=== PATIENT | female | born 1985 | race Caucasian/White ===

== ENCOUNTER 2022-10-23 08:23 | Outpatient (CLI) | payer BC, SELFPAY ==
[2022-10-23 09:37] LABS: Hematocrit 31.4 % (37.0-47.0); Mean Corpuscular HGB Conc 31.8 g/dl (32-36); Mean Corpuscular Hemoglobin 30.2 pg (26-34); Mean Corpuscular Volume 94.9 fl (80-100); Mean Platelet Volume 9.9 fl (7.4-10.4); Platelet Count Result 198 k/mm3 (150-375); Red Blood Count 3.31 M/mm3 (4.2-5.4); Red Cell Distribution Width 15.7 % (11.5-14.5); White Blood Count 5.8 K/mm3 (4.5-10.0)
[2022-10-24 10:54] LABS: Rapid Plasma Reagin Non-Reactive (NonReactive)
== END 2022-10-23 08:24 | disposition home or self-care (01) ==
PROVIDERS: PCP Family Medicine; Visit Provider Obstetrics & Gynecology
DX: Z01.812 Encounter for preprocedural laboratory examination (principal)
CPT/HCPCS: 36415; 85027; 86592; 86850; 86900; 86901

== ENCOUNTER 2022-10-24 05:45 | Inpatient (IN) | payer BC, SELFPAY ==
[2022-10-24] VITALS (40 sets, daily range): BP systolic 89–163; BP diastolic 48–124; PULSE 50–100; RESP 15–20; TEMP 36–36.7; O2SAT 97–100; BMI 31.4
[2022-10-24] MEDS: LACTATED RINGERS 1,000 ML 125 ML IV CONT (06:27)
--- NOTE | 2022-10-24 06:30 | LDADM ---
This patient, Jacinta Ma, was admitted to Labor/Delivery/Recovery 120 on 10/24/22 at 05:45. Plans for labor, pain management and were discussed with patient. Patient/family oriented to hospital policies and general routines including ID bracelet, bed and alarms, visiting hours, pain management, procedures, bathroom and other care routines, personal items, smoking policy, room service/diet and guest tray routines, infant security routines, and visiting hours. Patient/Family are encouraged to report perceived risks to care and to ask questions if they do not understand what they are told or what they should do. See OBIX for further documentation.
[2022-10-24 06:53] LABS: Glucose Point of Care 90 mg/dl (65-105)
--- NOTE | 2022-10-24 06:54 | WPDANESEPPF ---
Anes - Initial Pre Proc Eval Procedure: Operation Date: 10/24/22 07:30 Proposed Procedures p Primary Section with Bilateral Tubal Ligation - Shahla Benson MD Date/Time: 10/24/22 06:54 Surgeon: Shahla Benson MD Pre Op Diagnosis: C/S Patient Data Age: 37 Gender: F Height: 1.68 m Weight: 88.2 kg Last Vital Signs Pulse 92 10/24/22 06:46 BP 100/57 L 10/24/22 06:46 O2 Del Method Room Air 10/24/22 06:29 Allergies Allergy/AdvReac Type Severity Reaction Status Date / Time No Known Allergies Allergy Unverified 10/04/18 14:34 Home Medications Medication Instructions Recorded Confirmed Type ferrous sulfate 325 mg (65 mg 325 mg PO DAILY 10/03/22 10/03/22 History iron) tablet insulin NPH human semi-syn 100 28 unit subcut 10/03/22 History unit/mL subcutaneous suspension prenat.vits,evelio,[id number]-jjjjr 1 tablet 10/03/22 History Laboratory Tests 10/24/22 06:46 POC Capillary Glucose 90 mg/dl (65-105) Patient hx anesthesia problems: none Family hx anesthesia problems: none Results Review: All pre-operative results and documents have been reviewed as part of the pre-operative evaluation. [facility] Family History Family History Mother Diabetes mellitus Social History Social History Smoking status: Never smoker Second hand tobacco smoke exposure: No Substance use: never Lack of Transportation: No Lack of Food: Never True Current Housing: I Have Housing Concerned About Future Housing: No Difficulty Paying Gas/Electric Bills: No Difficulty Paying for Meds: No Currently Unemployed: No Education: Trade/Vocational Certificate Difficulty w/ Childcare or Family Care: No Spiritual care concerns: No Anes - Eval Final PreProcedure Day of Procedure 10/24/22 06:54 Patient weight: obese Heart: regular rate and rhythm Lungs: clear to auscultation Airway: Mallampati scale class II Neurological: alert and oriented Last oral intake: >/= 8 hours ASA classification: III Emergent: no Anesthetic plan: proceed Anesthesia type and monitoring: regional spinal and standard monitoring Results Review: All pre-operative results and documents have been reviewed as part of the pre-operative evaluation. Informed Consent: The patient's anesthetic plan and its attendant risks and benefits were discussed with the patient/family/POA. Questions were solicited and answers provided to the satisfaction of the patient/family/POA.
--- NOTE | 2022-10-24 07:21 | PM.IMHP ---
H&P: HPI History of Present Illness Date/Time: 10/24/22 07:21 Chief Complaint: primary CS Narrative: Jacinta is a 37yo at 39.4 here for primary Cs for h/o shoulder dystocia with a clavicle fracture. She has had two vaginal deliveries of LGA babies. Also planning salpingectomy for sterilization. This complicated by A2GDM and AMA. Review of Systems Review of Systems: All systems reviewed & are unremarkable except as noted in HPI and below PMFSH Family History Family History Mother Diabetes mellitus Social History Social History Smoking status: Never smoker Second hand tobacco smoke exposure: No Substance use: never Lack of Transportation: No Lack of Food: Never True Current Housing: I Have Housing Concerned About Future Housing: No Difficulty Paying Gas/Electric Bills: No Difficulty Paying for Meds: No Currently Unemployed: No Education: Trade/Vocational Certificate Difficulty w/ Childcare or Family Care: No Spiritual care concerns: No Meds Home Medications and Allergies Home Medications Medication Instructions Recorded Confirmed Type ferrous sulfate 325 mg (65 mg 325 mg PO DAILY 10/03/22 10/03/22 History iron) tablet insulin NPH human semi-syn 100 28 unit subcut 10/03/22 History unit/mL subcutaneous suspension prenat.vits,evelio,wmc-lcmw-hcppn 1 tablet 10/03/22 History Allergies Allergy/AdvReac Type Severity Reaction Status Date / Time No Known Allergies Allergy Unverified 10/04/18 14:34 Vital Signs Vital Signs - 24 hr 10/24/22 06:16 10/24/22 06:31 10/24/22 06:46 Pulse Rate 92 77 92 Blood Pressure 104/60 105/57 L 100/57 L Oxygen Delivery 10/24/22 07:01 10/24/22 07:17 10/24/22 06:29 Pulse Rate 83 74 Blood Pressure 98/53 L 93/65 L Oxygen Delivery Room Air Exam Const: General: no acute distress Resp: Effort & Inspection: normal respiratory effort Auscultation: clear to auscultation bilaterally Cardio: Rate: regular rate Rhythm: regular rhythm GI: GI Palp: Yes Soft to palpation Extrem: General: normal to inspection Assessment and Plan Assessment and plan (1) History of shoulder dystocia in prior : Code(s): Z87.59 - Personal history of other complications of , childbirth and the puerperium Status: Acute (2) GDM, class A2: Code(s): O24.419 - Gestational diabetes mellitus in , unspecified control Status: Acute Plan Consented for primary CS and salpingectomy for sterilization. Will proceed.
--- NOTE | 2022-10-24 07:25 | WPDHPUPDATE1 ---
History and Physical Update Update Date/Time: 10/24/22 07:25 History and Physical has been reviewed, including an updated exam of the patient. There are NO changes in the patient's condition. Risks, benefits, and alternatives have been discussed and questions answered. Patient agrees to proceed with procedure.
[2022-10-24] MEDS: ceFAZolin 2 GM/D5W 50 ML 2 GM/50 ML BAG IVPB (07:33)
[2022-10-24] MEDS: KETOROLAC 30 MG/ML VIAL (*BKC) 15 MG IV PUSH (08:10)
--- NOTE | 2022-10-24 08:47 | P.PCNOB_ITS ---
OB - Delivery Note Procedure Delivery date: 10/24/22 Procedure: Procedures Operation Date: 10/24/22 07:30 <No data on this case meets the specified criteria> primary low transverse section and bilateral salpingectomy Events: Gestational Diabetes and Other (history of shoulder dystocia) Route of delivery: Specimen: Yes (placenta) Quantitative Blood Loss (ml): 850 Anesthesia type: Spinal Disposition: Floor Complications: none Narrative: Pre Op Dx: history of shoulder dystocia, GDMA2 Post Op Dx: same The patient was taken to the OR and received spinal anesthesia. She was placed in dorsal supine position with left lateral tilt. SCDs and joseph were placed. She was prepped and draped in the normal sterile fashion. A Pfannensteil skin incision was made and carried through to the underlying layer of fascia. The fascia was incised in the midline and then extended laterally using Lezama scissors. The muscles were in the midline and the peritoneum was entered bluntly. The peritoneal incision was extended inferiorly and superiorly with care to avoid the bladder. The bladder blade was then inserted, the vesicouterine peritoneum was grasped, incised with Metzenbaum scissors, and a bladder flap created. The bladder blade was reinserted. A low transverse uterine incision was made with a scalpel and extended bluntly. AROM was performed and fluid was noted to be clear. The head was delivered, followed by the remainder of the baby. The baby's oropharynx was suctioned. After 30 seconds, the cord was clamped and cut and the infant was handed off. Cord blood was obtained and the placenta was then removed manually. The uterus was exteriorized. A moist lap sponge was used to curette the endometrium. The uterine incision was then closed with two layers of 0-Vicryl in a running, locking fashion. Good hemostasis was noted after some hemaderm. The posterior cul de sac was irrigated with normal saline and cleared of all clot and debris. Attention was then turned to the salpingectomy. Using the Ligasure device, the tubes were sequentially clamped, cauterized, and cut until the entire length of the tube was removed. Both tubes were removed in the same fashion and sent to pathology and hemostasis was noted. The uterus was returned to the abdomen. Both lateral gutters were then irrigated. The rectus muscles were inspected and hemostasis was obtained using Bovie cautery and hemaderm. The fascia was reapproximated using 0-Vicryl in running fashion. The subcutaneous tissue was irrigated with normal saline and made hemostatic with Bovie electrocautery. The skin was then closed with subcutaneous keisha. Steri strips and a bandage were applied. The uterus was evacuated. The patient tolerated the procedure very well. All counts were correct. She was taken to the recovery room in good condition. [place] Baby Date of : 10/24/22 Time of : 07:51 Weeks of gestation at delivery: 39 Infant gender: Female Weight (pounds): 8 Weight (ounces): 1 presentation: vertex Placenta delivery description: Manual Removal Cord Vessel Description: 3 Vessels and Delayed Cord Clamping score one minute: 8 score five minutes: 9
[2022-10-24] MEDS: LORATADINE 10 MG TABLET PO (09:29)
--- NOTE | 2022-10-24 11:08 | PC.NURSE ---
Patient transferred to post room #286 via stretcher. Support person present. Oriented to unit, room, information board, rooming in, admission packet and security measures. Patient verbalizes understanding.
--- NOTE | 2022-10-24 11:29 | PC.NURSE ---
On 10/24/22, the student, Filemon Pate, provided care and completed [facility] documentation on this patient. I have reviewed the student's documentation and agree with the findings.
[2022-10-24] MEDS: ONDANSETRON INJ 4 MG/2 ML VIAL IV PUSH (11:39)
[2022-10-24] MEDS: KCL 20 MEQ/D5/0.45% SOD CHL 1,000 ML 125 ML IV CONT (14:23)
[2022-10-24] MEDS: SIMETHICONE 80 MG TAB.CHEW PO (23:20)
[2022-10-25 00:10] VITALS: BP 99/64; PULSE 75; RESP 16; TEMP 36.7; O2SAT 100
[2022-10-25 04:00] VITALS: BP 98/56; PULSE 79; RESP 16; TEMP 36.8; O2SAT 100
[2022-10-25] MEDS: KETOROLAC 30 MG/ML VIAL (*BKC) IV PUSH (04:20)
[2022-10-25] MEDS: SIMETHICONE 80 MG TAB.CHEW PO ×2 (04:21→14:45)
[2022-10-25 04:57] LABS: Basophils Percent Auto 0.2 % (0.2-1.2); Eosinophils Absolute Auto 0.1 K/mm3 (0-0.3); Eosinophils Percent Auto 0.5 % (0-4.4); Hematocrit 26.9 % (37.0-47.0); Hemoglobin 8.7 g/dL (12.0-15.0); Immature Granulocyte Absolute 0.04 K/mm3 (0.00-0.031); Immature Granulocyte Percent A 0.4 % (0-0.5); Lymphocytes Absolute Auto 0.93 K/mm3 (0.9-3.2); Lymphocytes Percent Auto 9.1 % (18.3-44.2); Mean Corpuscular HGB Conc 32.3 g/dl (32-36); Mean Corpuscular Hemoglobin 30.1 pg (26-34); Mean Corpuscular Volume 93.1 fl (80-100); Mean Platelet Volume 10.1 fl (7.4-10.4); Monocytes Absolute Auto 0.7 K/mm3 (0.1-0.6); Monocytes Percent Auto 6.7 % (2.6-8.5); Neutrophils Absolute Auto 8.5 K/mm3 (1.3-6.7); Neutrophils Percent Auto 83.1 % (45.5-73.1); Platelet Count Result 155 k/mm3 (150-375); Red Blood Count 2.89 M/mm3 (4.2-5.4); Red Cell Distribution Width 15.6 % (11.5-14.5); White Blood Count 10.2 K/mm3 (4.5-10.0)
[2022-10-25 08:05] VITALS: BP 95/55; PULSE 74; RESP 18; TEMP 37.2; O2SAT 98
--- NOTE | 2022-10-25 08:09 | PM.OBPNVD ---
OB - PN: Subj Subjective Date/time seen: 10/25/22 08:09 Patient comments: no complaints, pain well controlled, tolerating diet and flatus present OB - PN: Obj Data Labs 10/25/22 04:07 Labs: Laboratory Results - last 24 hr 10/25/22 04:07 WBC 10.2 H RBC 2.89 L Hgb 8.7 L Hct 26.9 L MCV 93.1 MCH 30.1 MCHC 32.3 RDW 15.6 H Plt Count 155 MPV 10.1 Immature Gran % (Auto) 0.4 Neut % (Auto) 83.1 H Lymph % (Auto) 9.1 L [place] % (Auto) 6.7 Eos % (Auto) 0.5 Baso % (Auto) 0.2 Lymph # (Auto) 0.93 [place] # (Auto) 0.7 H Eos # (Auto) 0.1 Baso # (Auto) 0.0 Abs Immat Gran (auto) 0.04 H Absolute Neuts (auto) 8.5 H Absolute Nucleated RBC 0.0 Nucleated RBC % 0.0 OB - PN A/P Plan day: 1 Comments: Post Op LTCS - no problems, routine recovery Time Spent With Patient Time: Total time spent is greater than 50% in coordination of care (as documented) at patient's floor/unit and/or counseling patient: Exam Const: General: cooperative, healthy appearing, comfortable and no acute distress Resp: Auscultation: no crackles, no rales, no rhonchi and no wheezes Cardio: Rhythm: regular rhythm Heart sounds: no click and no murmurs GI: Inspection: non-distended Auscultation: normal bowel sounds Extrem: General: normal to inspection, no pedal edema and no calf tenderness
[2022-10-25] MEDS: POLYSACCHARIDE IRON COMPLEX 150 MG CAPSULE PO ×2 (08:36→16:21)
[2022-10-25] MEDS: MULTIVIT/MIN/PREN/FOL AC/IRON TABLET 1 TAB PO (08:36)
[2022-10-25] MEDS: IBUPROFEN 600 MG TABLET PO ×2 (08:37→14:52)
[2022-10-25] MEDS: DOCUSATE SODIUM 100 MG CAPSULE PO ×2 (08:37→16:21)
[2022-10-25] MEDS: HYDROcodone/acetaminophen (*CRX) 5-325 MG TABLET 1 TAB PO (08:38)
--- NOTE | 2022-10-25 12:00 | WPDANLDPN2 ---
Anes-Prog Note L&D Date/Time: 10/25/22 12:00 Neuro status: Neuro function grossly intact. Cardiovascular status: normal Respiratory status: normal Airway patency: baseline Mental status: baseline Post-Op hydration status: normal Vital Signs: Last Vital Signs Temp 37.2 C 10/25/22 08:05 Pulse 74 10/25/22 08:05 Resp 18 10/25/22 08:05 BP 95/55 L 10/25/22 08:05 Pulse Ox 98 10/25/22 08:05 O2 Del Method Room Air 10/24/22 20:30 Pain score (VAS): 310 I/O: Intake & Output 10/24/22 10/25/22 10/25/22 23:59 07:59 15:59 Intake Total 580 300 360 Output Total 700 1400 Balance -120 -1100 360 Post-procedural complaints: none Patient feedback: Patient satisfied with anesthetic care.
--- NOTE | 2022-10-25 12:00 | WPDANLDNPN2 ---
Anes-Prog Note L&D-Neuraxial Date/Time: 10/25/22 12:00 Opiod-related complaints: pruritis Patient feedback: Patient satisfied with post-operative pain management.
[2022-10-25] MEDS: HYDROcodone/acetaminophen (*CRX) 10-325 MG TABLET 1 TAB PO (14:56)
[2022-10-25 19:45] VITALS: BP 108/67; PULSE 91; RESP 18; TEMP 36.8; O2SAT 97
[2022-10-26] MEDS: IBUPROFEN 600 MG TABLET PO ×3 (00:07→23:20)
[2022-10-26] MEDS: HYDROcodone/acetaminophen (*CRX) 10-325 MG TABLET 1 TAB PO (00:07)
[2022-10-26] MEDS: SIMETHICONE 80 MG TAB.CHEW PO ×2 (00:08→09:57)
--- NOTE | 2022-10-26 07:31 | PM.OBPNVD ---
OB - PN: Subj Subjective Date/time seen: 10/26/22 07:31 Patient comments: no complaints and pain well controlled baby status: doing well OB - PN: Obj Data Labs 10/25/22 04:07 OB - PN A/P Assessment and Plan (1) delivery delivered: Code(s): O82 - Encounter for delivery without indication Status: Acute Plan day: 2 Plan: routine care Comments: home tomorrow Time Spent With Patient Time: Total time spent is greater than 50% in coordination of care (as documented) at patient's floor/unit and/or counseling patient: Exam Narrative: NAD abdomen soft, appropriately tender, incision CDI Extremities nontender with 1+ edema
[2022-10-26 08:40] VITALS: BP 107/59; PULSE 71; RESP 18; TEMP 36.9; O2SAT 98
[2022-10-26] MEDS: MULTIVIT/MIN/PREN/FOL AC/IRON TABLET 1 TAB PO (09:55)
[2022-10-26] MEDS: DOCUSATE SODIUM 100 MG CAPSULE PO ×2 (09:55→16:23)
[2022-10-26] MEDS: POLYSACCHARIDE IRON COMPLEX 150 MG CAPSULE PO ×2 (09:55→16:23)
[2022-10-26] MEDS: HYDROcodone/acetaminophen (*CRX) 5-325 MG TABLET 1 TAB PO ×2 (09:56→23:20)
[2022-10-26 20:00] VITALS: BP 108/55; PULSE 74; RESP 18; TEMP 36.9
[2022-10-27] MEDS: IBUPROFEN 600 MG TABLET PO (05:20)
[2022-10-27] MEDS: HYDROcodone/acetaminophen (*CRX) 5-325 MG TABLET 1 TAB PO ×2 (05:20→10:07)
--- NOTE | 2022-10-27 08:13 | PM.OBPNVD ---
OB - PN: Subj Subjective Date/time seen: 10/27/22 08:13 Patient comments: no complaints, pain well controlled, incisional pain, tolerating diet and flatus present OB - PN: Obj Data Labs 10/25/22 04:07 OB - PN A/P Plan day: 3 Plan: routine care, discharge home and other Comments: Incision check in one week. Given precautions Time Spent With Patient Time: Total time spent is greater than 50% in coordination of care (as documented) at patient's floor/unit and/or counseling patient: Exam Const: General: comfortable, no acute distress and alert Resp: Effort & Inspection: normal respiratory effort Auscultation: no crackles, no rales and no rhonchi Cardio: Rate: regular rate Heart sounds: no click, no murmurs and no rubs GI: Inspection: non-distended GI Palp: No Tenderness to palpation present (GI) Auscultation: normal bowel sounds Other: Incision - CDI Extrem: General: normal to inspection, no pedal edema and no calf tenderness
--- NOTE | 2022-10-27 08:13 | PM.OBDSVD ---
DS: Admitting Diagnosis Discharge Date 10/27/22 Admitting Diagnosis term DS: Discharge Diagnosis Discharge Diagnosis (1) delivery delivered: Code(s): O82 - Encounter for delivery without indication Status: Acute OB - DS: Summary OB Procedures : None OB Procedures Intrapartum: OB Procedures: : None Peripartum Data Procedures: Procedures Operation Date: 10/24/22 07:30 Actual Procedure Side Surgeon p Primary Section with Bilateral Tubal Ligation Bilateral Shahla Benson MD Time Spent with Patient Time attestation: Total time spent providing and/or coordinating discharge services: DS: Data Data Completed and Pending Completed studies during hospitalization: Pending at discharge 10/24/22 09:09 Surgical [PTH] Routine Discharge Plan Discharge Attending physician on discharge: Estefany Sanderson Discharging Clinician: Estefany Sanderson Patient Disposition: Home, Self-Care Activity: pelvic rest Diet: regular Discharge Instructions: Education: Mom and Baby Guide Given to: Mother Follow-Up: Call your delivering provider's office for an appointment to be seen in: 1 Week Mom and baby should come to the [facility] for the follow-up appointment. Appointment Date/Time: October 29, 2022 at 8:00 am What to expect at your follow-up visit: Blood Pressure Check Call [phone] if you are unable to keep your appointment time. BREAST CARE: * Wear a snug supportive bra. * For engorgement discomfort: Bottle Feeding: * May apply ice packs ABDOMINAL INCISION: (if applicable) * Allow incision to air dry * Do NOT use lotions for powders on your incision * When showering, allow soap and water to run over the incision, but do not wash incision PERINEAL CARE: * Until bleeding stops, use your jose bottle after urinating * Change your pad frequently throughout the day * No tub baths until seen by your physician - You may shower ACTIVITY: * Rest as much as possible. * Do not exercise or lift anything heavier than your baby (such as laundry or other children.) * Avoid stairs or driving as much as possible. * Do not put anything into the vagina. No douching, tampons, or sexual activity until seen by physician. NOTIFY PHYSICIAN IF YOU HAVE ANY QUESTIONS OR IF ANY OF THE FOLLOWING SYMPTOMS OCCUR: * If your incision becomes red, swollen, or more painful than what you have experienced in the hospital. * If your vaginal bleeding becomes foul smelling. * If your vaginal bleeding becomes more heavy than a period or if your bleeding changes from pink to bright red. However, you may pass an occasional walnut-sized clot once or twice for the first week . * If you experience a sharp, shooting pain in you calves. * If you discover a hard, reddened area on your breast or if you experience flu-like symptoms. + If you have a fever of 100.4 or greater DIET: * Eat regular, well-balanced meals. * Drink plenty of fluids daily. If , drink to thirst. Patient Instructions: Antibiotic Form Stand Alone Forms: General Discharge Information Follow-up/Referrals: Estefany Sanderson MD [Physician] - Discharge Medications: New oxycodone-acetaminophen 5-325 mg tablet 1 tablet PO Q4H PRN (Reason: pain) Qty: 25 0RF Continued ferrous sulfate 325 mg (65 mg iron) Tablet 325 mg PO DAILY Novolin N (Semi-Synthetic) 100 unit/mL Suspension 28 unit SUBCUT #2 Tablet 1 tablet Date of admission: 10/24/22 05:45 Primary Care Provider: Tabatha,Jazmín Mann Admitting Provider: Shahla Besnon Attending physician on admission: Shahla Benson Condition: Stable
[2022-10-27 10:00] VITALS: BP 106/75; PULSE 76; RESP 18; TEMP 36.5; O2SAT 99
--- NOTE | 2022-10-27 10:00 | PC.NURSE ---
PT introductions made and plan of care discussed per post op c section, pain management, bottle feeding, daily care activities and pending discharge to home. PT sole recipient of such instructions and no barriers to learning identified at this time. PT received such instructions per one to one discussion, mom baby care guide and demonstrations this shift. PT verbalized understanding of such care.
[2022-10-27] MEDS: MULTIVIT/MIN/PREN/FOL AC/IRON TABLET 1 TAB PO (10:07)
[2022-10-27] MEDS: DOCUSATE SODIUM 100 MG CAPSULE PO (10:07)
--- NOTE | 2022-10-27 14:30 | PC.NURSE ---
PT received discharge instructions per protocol and verbalized understanding of such care. Patient was given the opportunity to view the discharge video Mother & Baby Care, The First Two Weeks and to ask questions. Patient declined viewing the video and has been given the mother/baby guide for home reference.
--- NOTE | 2022-10-27 15:10 | PC.NURSE ---
PT discharged to home ambulatory accompanied by infant and son and taken to waiting car. Follow up appts confirmed
[2022-10-29 07:58] VITALS: BP 127/70; PULSE 61; RESP 16; TEMP 37.6; O2SAT 98
== END 2022-10-27 15:10 | disposition home or self-care (01) | DRG 785 ==
LOC: ANHOB2 10-27 08:18 → ANHLDR 10-30 08:45 → ANHOB2 10-30 08:45
PROVIDERS: Admitting Provider Obstetrics & Gynecology; PCP Family Medicine; Visit Provider Obstetrics & Gynecology
PROC: 10D00Z1 Extraction of Products of Conception, Low, Open Approach (ICD-10-PCS; CPT 59514; principal; 2022-10-24 07:30)
DX: O24.429 Gestational diabetes mellitus in childbirth, unspecified control (principal); Z37.0 Single live birth; Z3A.39 39 weeks gestation of pregnancy; O99.892 Other specified diseases and conditions complicating childbirth; Z87.59 Personal history of other complications of pregnancy, childbirth and the puerperium; Z51.5 Encounter for palliative care
CPT/HCPCS: 36415; 82948; 85025; 85027; 86592; 86850; 86900; 86901; 88302; A9270; J0690; J1200; J1885; J2274; J2371; J2405; J2590; J3480; J7120

== ENCOUNTER 2023-04-15 09:55 | Emergency (ER) | payer BC, SELFPAY ==
--- NOTE | 2023-04-15 09:56 | ED.EYEPROB ---
HPI - Eye Problem General Chief complaint: Eye Problems Stated complaint: right eye red,discharge Time Seen by Provider: 04/15/23 09:55 Source: patient Mode of arrival: ambulatory Limitations: no limitations History of Present Illness HPI Narrative: Janel is a 38-year-old female patient presenting to the clinic today with complaints of bilateral eye redness, itchy, watery x1 day. She reports she is also having nasal congestion/runny nose. Denies any fever, chills, or body aches. Denies any shortness of breath or chest pain. States that her right eye was matted shut this morning with clearish yellow discharge Related Data Allergies Allergy/AdvReac Type Severity Reaction Status Date / Time No Known Allergies Allergy Verified 04/15/23 10:09 Review of Systems Review of Systems: Pertinent positives per HPI. Patient denies any fever, chills, rash, headache, visual changes, dizziness, cough, sore throat, shortness of breath, chest pain, palpitations, nausea, vomiting, diarrhea, constipation, abdominal pain, or any urinary issues. PMFSH Family History Family History Mother Diabetes mellitus Social History Social History Smoking status: Never smoker Second hand tobacco smoke exposure: No Substance use: never Lack of Transportation: No Lack of Food: Never True Current Housing: I Have Housing Concerned About Future Housing: No Difficulty Paying Gas/Electric Bills: No Difficulty Paying for Meds: No Currently Unemployed: No Education: Trade/Vocational Certificate Difficulty w/ Childcare or Family Care: No Spiritual care concerns: No Comments At the time of my signature, I reviewed and agree with the nursing past medical, surgical, social, and family history. There is no relevant family history pertinent to the patient complaint. Exam Narrative: General: Well-developed, well nourished, in no apparent distress Head: Normocephalic, atraumatic Eyes: Pupils equally round and reactive to light bilaterally, EOM intact, bilateral sclera and conjunctive injected, no discharge, lids normal Ears: TMs intact and clear, ear canals clear, no drainage, grossly hearing normal. Nose: Nares patent, clear discharge, no inflammation, no sinus tenderness. Mouth: Oropharynx without lesions or masses, good dentition, MMM. Neck: Supple, trachea midline, no enlargement of anterior or posterior cervical nodes, no thyroid masses or goiter palpable. Cardio: Regular rate and rhythm, s1 and s2 normal, no murmur appreciated. Resp: Clear to auscultation bilaterally anteriorly and posteriorly, no rhonchi, rales, wheezing or rubs Course Course Emergency Course: Portions of this record may have been created with voice recognition software. Level of Care: Express Care Visit Vital Signs Vital signs: Vital signs reviewed MDM - Eye Problem MDM Narrative Medical decision making narrative: At the time of visit patient is resting comfortably on the exam table. Patient appears to be nontoxic. Plan: I suspect patient has URI with viral conjunctivitis. Prescription for azelastine drops was sent to the pharmacy. Supportive measures were discussed with the patient and they voiced understanding discharge instructions and agrees to treatment plan. Return precautions reviewed Differential Diagnosis Differential diagnosis: Likely corneal abrasion, conjunctivitis, acute iritis, periorbital cellulitis, subconjunctival hemorrhage, glaucoma, corneal ulcer and ruptured globe Discharge Plan Discharge Clinical Impression: URI (upper respiratory infection) Qualifiers: URI type: unspecified URI Qualified Code(s): J06.9 - Acute upper respiratory infection, unspecified Acute viral conjunctivitis Qualifiers: Laterality: bilateral Qualified Code(s): B30.9 - Viral conjunctivitis, unspecified Patient Di
[2023-04-15 10:10] VITALS: BP 122/60; PULSE 64; RESP 16; TEMP 37.2; O2SAT 100
== END 2023-04-15 10:28 | disposition home or self-care (01) ==
PROVIDERS: Emergency Provider Nurse Practitioner Family; PCP Family Medicine
DX: J06.9 Acute upper respiratory infection, unspecified (principal); H10.33 Unspecified acute conjunctivitis, bilateral
CPT/HCPCS: 99213; G0463